=== PATIENT | male | born 1980 | race Caucasian/White ===

== ENCOUNTER 2024-10-26 19:37 | Emergency (ER) | payer OTHER ==
[2024-10-26 19:47] VITALS: BP 173/108; PULSE 79; RESP 18; TEMP 98.6; BMI 23.5
[2024-10-26] MEDS ORDERED: DEXAMETHASONE SOD PHOSPHATE 10 MG/1 ML VIAL ONE (20:21)
[2024-10-26] MEDS: DEXAMETHASONE SOD PHOSPHATE 10 MG/1 ML VIAL IM ONE (20:33)
== END 2024-10-26 21:26 | disposition home or self-care (01) ==
LOC: JERFT 19:37
PROC: 3E023GC Introduction of Other Therapeutic Substance into Muscle, Percutaneous Approach (ICD-10-PCS; principal; 2024-10-26)
DX: L50.9 Urticaria, unspecified (principal); R21 Rash and other nonspecific skin eruption; W57.XXXA Bitten or stung by nonvenomous insect and other nonvenomous arthropods, initial encounter
CPT/HCPCS: 99284-25; J1100